=== PATIENT | female | born 1980 | race Two or more races ===

== ENCOUNTER 2022-12-08 13:18 | Emergency (ER) | payer SELFPAY ==
[2022-12-08 13:20] VITALS: BP 130/88; PULSE 76; RESP 16; TEMP 36.4; O2SAT 98; BMI 22.7
--- NOTE | 2022-12-08 13:44 | VDLE_ITS ---
Reason For Study: LLE PAin RIGHT LEFT FV is compressible, spontaneous, phasic, GSV is normal. competent and demonstrates normal CFV is compressible, spontaneous, phasic, augmentation. competent, and demonstrates normal Procedure augmentation. This is a venous duplex using B-mode, color FV is compressible, spontaneous, phasic, flow and spectral Doppler. competent and demonstrates normal Exam performed portable in ED. augmentation. The exam was diagnostic. POP V is compressible, spontaneous, phasic, A preliminary report was called and/or faxed competent and demonstrates normal to Dr. Ashley. augmentation. T/P Trunk is compressible. PTV is compressible. LT PerV is compressible. VL/Venous Duplex US, Unilateral Interpretation Summary Deep veins of the left lower extremity are patent and compressible segmentally. There is no evidence of left lower extremity deep vein thrombosis. The left great saphenous vein clayton ears patent and compressible segmentally. Ordering Physician: Josse Ashley Referring Physician: N/A Performed By: Marquis Mckeon RVT
[2022-12-08 15:36] VITALS: BP 120/87; PULSE 77; RESP 16
--- NOTE | 2022-12-08 16:16 | EX.ED.DYSGE1 ---
HPI History of Present Illness Chief Complaint: Lower Extremity Injury Narrative Narrative: Patient is a 42-year-old female who is presenting with acute on chronic left lower leg pain. Patient is having pain from her left buttock that radiates into her left lateral thigh. Patient lives in [facility]. She is here visiting. Patient does a lot of traveling in an airplane flying. Patient does have a friend who lives in [place] at bedside helping with patient's medical care today. Patient does not have a family doctor in [facility]. Patient has to wait in line for hours and hours to possibly see a doctor in [facility]. Patient try to be evaluated before she goes home to [facility] in 2 weeks. Patient is noticing intermittent pain to left lateral/posterior thigh. Patient has swelling that comes and goes behind her left knee. Patient has intermittent headaches and migraines, she has no headache or migraine today. Last time she had a headache/migraine was 3 to 4 months ago. Patient has no chest pain or shortness of breath today. Patient has no other acute complaints. The chief concern of patient and her friend at bedside is DVT. Patient has no unilateral swelling. She has no swelling behind her left knee today. Patient does have some mild varicosities to left lateral thigh. PFSH PFSH Medical History no medical history Home Medications ascorbate calcium (vitamin C) 500 mg tablet 500 mg PO DAILY 12/08/22 [History Last Taken Unknown] aspirin 81 mg tablet,delayed release (Adult Aspirin Regimen) 81 mg PO DAILY 12/08/22 [History Last Taken Unknown] omega-3 fatty acids 300 mg capsule 600 mg PO DAILY 12/08/22 [History Last Taken Unknown] Social History Smoking Status: Never smoker ROS ROS ED ROS Narrative REVIEW OF SYSTEMS: Unless otherwise stated in this report the patient's positive and negative responses for review of systems for constitutional, eyes, ENT, cardiovascular, respiratory, gastrointestinal, neurological, , musculoskeletal, and integument systems and related systems to the presenting problem are either stated in the history of present illness or were not pertinent or were negative for the symptoms and/or complaints related to the presenting medical problem. EXAM Physical Exam Narrative Exam Narrative: Vital signs reviewed and patient is not hypoxic. General: The patient appears well and in no apparent distress. Patient is resting comfortably on cart. Not toxic, lethargic, or listless. Skin: Warm, dry, no pallor noted. There is no rash noted. Head: Normocephalic, atraumatic Eye: Normal conjunctiva, no drainage, EOMI. PERRL. Ears, Nose, Mouth, and Throat: oral mucosa is moist. Nares patent. Mouth without vesicles. Cardiovascular: Regular Rate and Rhythm, no murmurs, gallops, or rubs Respiratory: Patient is in no distress, no accessory muscle use, lungs are clear to auscultation, no wheezing, rales or rhonchi Back: non-tender, no CVA tenderness bilaterally to percussion. NO CTLS midline or paraspinal tenderness to palpation. Negative straight leg raising test on the left. Patient does have tenderness palpation to the left piriformis muscle, GI: Soft, no tenderness to palpation, no masses appreciated. No rebound, guarding, or rigidity noted. Musculoskeletal: The patient has full range of motion of all extremities and joints with no difficulty. Patient has no motor, no sensory deficits. Patient has no palpation to the posterior aspect of bilateral thighs, popliteal fossa and calves bilateral. No signs of DVT. Patient does have some mild varicosities superficially to the left lower lateral thigh, no pain to palpation. Neurological: A&O x4, normal speech, no focal neurological deficits. Psychiatric: Cooperative Const Vital Signs: 12/08/22 13:20 12/08/22 15:36 Temperature 97.5 F L Temperature Source Temporal Pulse Rate 76 77 Respiratory Rate 16 16 Blood Pressure 130/88 H 120/87 H Blood Pressure Mean 102 98 Pulse Ox 98 Oxygen Delivery Method Room Air MDM MDM MDM Narrative Medical decision making narrative: Patient had DVT studies were negative. Education on piriformis syndrome sciatica was done at bedside and on discharge paperwork. Patient has intermittent headache with migraine, last time she had this was for 5 months ago. Patient says that she takes nothing for headache/migraine when occurs, she just prays. Patient has no chest pain or shortness of breath. Education on ice, stretching and following up with therapist or chiropractor was discussed. Patient is going back to [facility] in 2 weeks, their medical system is much different than here. Patient does understand the ice, stretching exercises that she can do to help improve her symptoms. No questions at discharge. Patient and her friend were relieved there is no DVT, that was her chief concern Discharge Plan Triage Chief Complaint: Lower Extremity Injury ED Provider: Josse Ashley Dx/Rx/DC Orders Clinical Impression: Left sided sciatica, Piriformis syndrome of left side, Left leg pain Instructions: Understanding Deep Vein Thrombosis, Migraines and Cluster Headaches, Low Back Leg Pain Causes, Understanding Lumbar Radiculopathy, Back Exercises: Hip Rotator Stretch, ED Myalgias, ED Sciatica Prescriptions: No Action aspirin [Adult Aspirin Regimen] 81 mg tablet,delayed release (DR/EC) 81 mg PO DAILY ascorbate calcium (vitamin C) 500 mg tablet 500 mg PO DAILY omega-3 fatty acids 300 mg capsule 600 mg PO DAILY Primary Care Provider: Care Physician,No Primary Activity Restrictions/Additional Instructions: Education has been done at bedside ruling out DVT. A copy of the report was given to you. Education on DVT was given to you for educational purposes only, you do not have a DVT. Education was done at bedside on sciatica stretching and exercises along on discharge paperwork. Education on migraine was given to you as well since we discussed this at bedside, you do not have a migraine today Disposition Disposition: Home, Self Care Discharge Date/Time: 12/08/22 15:36
== END 2022-12-08 15:36 | disposition home or self-care (01) ==
LOC: ED 15:31
PROVIDERS: Emergency Provider Emergency Medicine; Visit Provider Emergency Medicine
DX: M54.32 Sciatica, left side (principal); M79.605 Pain in left leg
CPT/HCPCS: 93971; 99282